=== PATIENT | female | born 1965 | race Caucasian/White ===

== ENCOUNTER → 2016-08-29 | Outpatient (CLI) | payer OTHER ==
--- NOTE | 2016-08-29 15:00 | MA ---
Screening Digital Mammogram With Tomosynthesis Clinical Indications: Routine screening. Technique: Standard digital cephalocaudal and tomosynthesis mediolateral oblique projections are obt ained. The digital images were processed by the [employer] computer aided detection system. Comparison: May 2015, February 2014, October 2012 and July 2011 Breast density: B; There are scattered fibroglandular densities. Findings: CAD was reviewed. No suspicious findings are identified. Impression: Negative mammogram. BI-RADS 1. Recommendation: Routine screening is recommended in one year. Replaced By [facility] will send a result letter to the patient. Negative mammography should not preclude additional workup of a clinically suspicious finding. The patient's information is entered into a reminder system with a target due date for her next mammo gram.
== END ==
LOC: FIMAGING 13:26
DX: Z12.31 Encounter for screening mammogram for malignant neoplasm of breast (principal)
CPT/HCPCS: G0202

== ENCOUNTER 2017-08-09 16:38 | Emergency (ER) | payer OTHER ==
[2017-08-09 16:44] VITALS: TEMP 98.2; O2SAT 98
--- NOTE | 2017-08-09 17:16 | EDPHY ---
H & P Time Seen by Provider: 08/09/17 17:06 HPI/ROS: CHIEF COMPLAINT: Right knee pain HISTORY OF PRESENT ILLNESS: 51-year-old female arrives via private vehicle complaining of acute right lateral knee pain which occurred yesterday. 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 She has reproducible pain with range of motion and palpation to the right superior lateral aspect. No gross instability. She is able to bear weight albeit with some pain. She has prior history of multiple knee surgeries. PRIMARY CARE PROVIDER:Worker's compensation REVIEW OF SYSTEMS: A ten point review of systems was performed and is negative with the exception of the items mentioned in the HPI PHYSICAL EXAM (Prior to examination, patient consented to physical exam, hands were washed and my usual and customary physical exam procedures followed) 1) GENERAL: Well-developed, well-nourished, alert and oriented. Appears to be in no acute distress. 2) HEAD: Normocephalic 3) HEENT: Pupils equal, round, reactive to light bilaterally. 4) LUNGS: Breathing comfortably. 5) MUSCULOSKELETAL: Exam of the right knee shows no visible acute abnormality , no visible acute signs of trauma .Multiple surgical scars noted. Compartments are soft. 6) SKIN: Normal coloration 7) VASCULAR: DP,PT pulses and cap refill present and brisk distally DIFFERENTIAL DIAGNOSIS: in no particular order including but not limited to fracture, sprain, compartment syndrome, septic arthritis, DVT Patient offered knee immobilizer and crutches which he declines. I believe her to have decision-making capacity. MEDICAL DECISION MAKING Care of patient under supervision of secondary supervising physician Dr Pat.. Serial evaluations performed on patient. I discussed the limitations of x-ray in diagnosis of knee pain and injury. At this time I do not think that emergent MRI is currently indicated. She has an upcoming appointment with worker's compensation provider on Saturday (today is Saturday). Recommend she keep this appointment. However, I have recommended follow-up with Orthopedic surgery Smoking Status: Never smoked Constitutional: Initial Vital Signs Temperature (C) 36.8 C 08/09/17 16:41 Heart Rate 79 08/09/17 16:41 Respiratory Rate 18 08/09/17 16:41 Blood Pressure 182/105 H 08/09/17 16:41 O2 Sat (%) 98 08/09/17 16:41 O2 Delivery Mode Room Air Allergies/Adverse Reactions: codeine [Codeine] Allergy (Verified 12/05/12 06:09) Home Medications: Medication Instructions Recorded ASPIRIN 08/09/17 MDM/Departure - MDM Imaging Results: Imaging Impressions Knee X-Ray 08/09/17 17:07 Impression: 1. Multicompartment osteoarthritis. 2. No fracture. images reviewed by myself - Depart Disposition: Home, Routine, Self-Care Clinical Impression: Right knee sprain Qualifiers: Encounter type: initial encounter Involved ligament of knee: unspecified ligament Qualified Code(s): S83.91XA - Sprain of unspecified site of right knee , initial encounter Condition: Good Instructions: Knee Sprain (ED) Additional Instructions: Return to the ER immediately if you experience discoloration, have worsening pain, numbness, tingling, or any other symptoms that concern you. If you received x-rays in the emergency department today, be advised, that ligamentous , tendon, muscular, and other non-bony injury cannot be fully ruled out. Try to keep your affected extremity elevated above the level of your chest, and keep cold packs on the affected area, for the next 48 hours. Stand Alone Forms: Work Comp Follow Up Referrals: David Jackson MD [Medical Doctor] - 5-7 days, call for appt.
[2017-08-09 18:09] VITALS: BP 124/78; PULSE 65; RESP 15
== END 2017-08-09 18:09 | disposition home or self-care (01) ==
DX: S83.91XA Sprain of unspecified site of right knee, initial encounter (principal); Z79.82 Long term (current) use of aspirin; W18.43XA Slipping, tripping and stumbling without falling due to stepping from one level to another, initial encounter; Y99.1 Military activity; Y93.89 Activity, other specified

== ENCOUNTER → 2017-09-07 | Outpatient (CLI) | payer OTHER | LOC: FIMAGING 11:41 | PROVIDERS: ATTEND Physical Medicine & Rehabilitation | DX: S83.231A Complex tear of medial meniscus, current injury, right knee, initial encounter (principal); M94.8X6 Other specified disorders of cartilage, lower leg; M22.41 Chondromalacia patellae, right knee ==

== ENCOUNTER → 2017-12-25 | Outpatient (CLI) | payer OTHER | LOC: FIMAGING 12:36 | PROVIDERS: ATTEND Nurse Practitioner Women's Health | DX: Z12.31 Encounter for screening mammogram for malignant neoplasm of breast (principal) ==